=== PATIENT | male | born 1975 | race American Indian/Alaskan Native ===

== ENCOUNTER 2018-08-18 10:08 | Emergency (ER) | payer OTHER ==
[2018-08-18 10:39] VITALS: BP 112/75
--- NOTE | 2018-08-18 12:47 | Emergency Department Report ---
Abscess Boil HPI - HPI Chief Complaint: Skin/Abscess/Foreign Body Stated Complaint: CYST Time Seen by Provider: 08/18/18 12:13 History: Yes Pain, No Fever, No Purulent Drainage, No Numbness, No Foreign Body, No Previous History, No Insect Bite HPI: This is a 43-year-old male with no prior medical history of present with the boil underneath his chin. The past 2 weeks. Patient states is greater than it was yesterday her sit touch it. Patient stated that this morning the rupture is in some pus came out. Home Medications: Previous Rx's Medication Instructions Recorded Last Taken Type Clindamycin [Clindamycin CAP] 300 mg PO Q8H #21 cap 08/18/18 Unknown Rx Ibuprofen [Motrin] 800 mg PO Q8HR #30 tablet 08/18/18 Unknown Rx Allergies/Adverse Reactions: Allergies Allergy/AdvReac Type Severity Reaction Status Date / Time No Known Allergies Allergy Unverified 08/18/18 10:19 ED Review of Systems ROS: Stated complaint: CYST Other details as noted in HPI Comment: All other systems reviewed and negative ED Past Medical Hx - Past Medical History Previous Medical History?: No - Surgical History Past Surgical History?: No - Social History Smoking Status: Never Smoker Substance Use Type: None - Medications Home Medications: Home Medications Medication Instructions Recorded Confirmed Last Taken Type Clindamycin [Clindamycin CAP] 300 mg PO Q8H #21 cap 08/18/18 Unknown Rx Ibuprofen [Motrin] 800 mg PO Q8HR #30 tablet 08/18/18 Unknown Rx ED Abscess Boil Physical Exam - Exam General: Vital signs noted. No distress. Alert and acting appropriately. Size: 2 cm Exam: Yes Tenderness, No Fluctuance, No Surrounding Cellulites/Erythema, No Lymphangitis, No Crepitation, No Heart Murmur, No Normal Neurologic Exam, No Normal Circulation I & D Note - I & D Note I & D Note: Patient positioned appropriately, 5cc lidocaine without epinephrine was used as a local anesthetic. #11 blade scalpal used for single incision. Additional local anesthetic injected into surrounding viable tissue prior to blunt dissection of loculated adhesions. Copius drainage of pus. . Procedure tolerated without complications. Wound dressed with sterile 4x4 guaze and paper tape. Pt tolerated procedure well. ED Course Vital Signs 08/18/18 10:36 Temperature 97.8 F Pulse Rate 70 Respiratory 18 Rate Blood Pressure 112/75 [Left] O2 Sat by Pulse 99 Oximetry Critical care attestation.: If time is entered above; I have spent that time in minutes in the direct care of this critically ill patient, excluding procedure time. ED Medical Decision Making - Medical Decision Making 6-year-old male presents with simple abscess under the chin. Abscess incision and drainage was performed by me. Patient tolerated procedure well. See I&D Note. Discussed the patient follow-up in 3 days for a wound check. Vital signs normal patient is not acute distress he's retaining clear sentences he understands instructions and she is to follow up ED Disposition Clinical Impression: Abscess or cellulitis of chin Disposition: DC- TO HOME OR SELFCARE Is pt being admited?: No Does the pt Need Aspirin: No Condition: Undetermined Instructions: Abscess (ED) Additional Instructions: Make sure to follow up with the primary care physician as discussed. Take all your medications as you've been prescribed. If you have any worsening symptoms or develop new symptoms please return to ED immediately. Prescriptions: Clindamycin [Clindamycin CAP] 300 mg PO Q8H #21 cap Ibuprofen [Motrin] 800 mg PO Q8HR #30 tablet Referrals: ANGELA VALENZUELA MD [Primary Care Provider] - 3-5 Days Forms: Work/School Release Form(ED) Time of Disposition: 13:27
== END 2018-08-18 13:28 | disposition home or self-care (01) ==
LOC: EDSEX → ED 10:08
DX: L02.01 Cutaneous abscess of face (principal)
CPT/HCPCS: 99282